=== PATIENT | male | born 1995 | race African-American/Black ===

== ENCOUNTER 2017-06-03 13:16 | Emergency (ER) | payer OTHER ==
[~2017-06-03] VITALS: Ht 175.3 cm; Wt 65.8 kg
[~2017-06-03 13:16] MED LIST: CORTISPORIN-TC10 ML OT; DOXYCYCLINE 10100 MG PO; KEFLEX500 MG PO; MEDROLDOSEPACK PO; MELATONIN1 MG PO
[2017-06-03] MEDS ORDERED: TOBREX5 ML OPHTHALMIC (13:27)
== END 2017-06-03 13:30 | disposition home or self-care (01) ==
LOC: ER 13:16
DX: H10.89 Other conjunctivitis (principal)

== ENCOUNTER 2017-06-30 18:53 | Emergency (ER) | payer OTHER ==
[~2017-06-30] VITALS: Ht 175.3 cm; Wt 66.7 kg
[~2017-06-30 18:53] MED LIST changes: +TOBREX5 ML OPHTHALMIC
[2017-06-30] MEDS ORDERED: HYDROXYZINE HCL25 M1 PO (19:00)
[2017-06-30 19:13] LABS: URINE BILIRUBIN NEGATIVE (Negative); URINE BLOOD TRACE (Negative); URINE CLARITY CLEAR; URINE COLOR YELLOW; URINE GLUCOSE-RANDOM* NEGATIVE (Negative); URINE KETONES NEGATIVE (Negative); URINE LEUKOCYTES-REFLEX NEGATIVE (Negative); URINE NITRITE-REFLEX NEGATIVE (Negative); URINE PROTEIN (DIPSTICK) 1+ (Negative); URINE SPECIFIC GRAVITY 1.025 (1.005-1.035); URINE UROBILINOGEN 0.2 E.U./dl (0.2-1.0)
[2017-06-30 19:23] LABS: SQUAMOUS 0-3 Few /LPF (0-3)
[2017-06-30 19:24] LABS: MUCUS >6 Heavy strn/LPF (None Seen)
[2017-06-30 19:25] LABS: BACTERIA-REFLEX None Seen /HPF (None Seen); CASTS None Seen /LPF (None Seen); URINE RBC 3-10 Few /HPF (0-2); URINE WBC-REFLEX 0-5 Rare /HPF (0-5)
[2017-06-30 19:26] LABS: CRYSTALS None Seen /LPF (None Seen)
== END 2017-06-30 23:32 | disposition home or self-care (01) ==
LOC: ER 18:53
PROVIDERS: Physician Assistant
DX: Z20.2 Contact with and (suspected) exposure to infections with a predominantly sexual mode of transmission (principal); F32.9 Major depressive disorder, single episode, unspecified; F41.9 Anxiety disorder, unspecified

== ENCOUNTER 2017-08-30 11:54 | Emergency (ER) | payer OTHER ==
[~2017-08-30] VITALS: Ht 177.8 cm; Wt 70.3 kg
[~2017-08-30 11:54] MED LIST changes: +HYDROXYZINE HCL25 M1 PO
[2017-08-30 11:59] VITALS: BP 133/76
[2017-08-30] MEDS ORDERED: IBUPROFEN 600600 M1 PO (13:02)
== END 2017-08-30 13:15 | disposition home or self-care (01) ==
LOC: ER 11:54
DX: S63.602A Unspecified sprain of left thumb, initial encounter (principal); F32.9 Major depressive disorder, single episode, unspecified; F41.9 Anxiety disorder, unspecified; W01.0XXA Fall on same level from slipping, tripping and stumbling without subsequent striking against object, initial encounter; Y92.89 Other specified places as the place of occurrence of the external cause; Y93.89 Activity, other specified; Y99.8 Other external cause status